=== PATIENT | female | born 1950 | race African-American/Black ===

== ENCOUNTER 2018-04-07 11:09 | Emergency (ER) | payer OTHER ==
[2018-04-07 11:15] VITALS: TEMP 98.2; BMI 39.1
--- NOTE | 2018-04-07 12:17 | PDOC ---
History of Present Illness - General Chief Complaint: Weakness Stated Complaint: WEAKNESS Time Seen by Provider: 04/07/18 12:08 - History of Present Illness Initial Comments: 04/07/18 12:31 The patient is a 68 year old female with a PMH of HTN, HLD, Asthma who presents for evaluation of Lightheadedness, Nausea, and Generalized Weakness. The patient reports a 3 week history of intermittent lightheadedness and generalized weakness with associated nausea that acutely worsened today prompting her presentation to the ED for further evaluation. She notes that her symptoms occasionally worsen with standing but otherwise is unable to note many exacerbating or relieving factors. The patient otherwise denies fevers, chills, SOB, chest pain, vomiting, abdominal pain, or changes with urination or bowel movements. Past History - Past Medical History Allergies/Adverse Reactions: Allergies Allergy/AdvReac Type Severity Reaction Status Date / Time No Known Allergies Allergy Verified 04/07/18 11:10 Home Medications: Ambulatory Orders Amlodipine Besylate [Norvasc -] 10 mg PO DAILY 04/07/18 Losartan/Hydrochlorothiazide [Losartan-Hctz 100-25 mg Tab] 1 each PO DAILY 04/07 Meclizine HCl [Antivert -] 25 mg PO DAILY PRN #30 tablet 04/07/18 Metoprolol Succinate [Toprol Xl] 100 mg PO DAILY 04/07/18 Simvastatin 20 mg PO DAILY 04/07/18 Asthma: Yes COPD: No HTN: Yes Hypercholesterolemia: Yes - Immunization History Immunization Up to Date: Yes - Suicide/Smoking/Psychosocial Hx Smoking History: Never smoked Review of Systems - Review of Systems Comments:: 04/07/18 12:35 Constitutional: Fatigue. No fevers, chills, malaise HEENT: No Rhinorrhea, nasal congestion, visual changes Cardiovascular: Lightheadedness. No chest pain, syncope, palpitations, Respiratory: No Cough, SOB, Hemoptysis, Gastrointestinal: Nausea. No Abdominal pain, Vomiting, Constipation, Diarrhea, Melena Genitourinary: No Dysuria, Frequency, Urgency, Hesitancy, Hematuria, Flank pain Musculoskeletal: No Myalgia, arthralgia Skin: No rashes, itching, bruising, pallor Neurologic: No Headache, Dizziness, Numbness, Weakness, or Tingling Psychiatric: No Hallucinations. No SI or HI *Physical Exam - Vital Signs Last Vital Signs Temp Pulse Resp BP Pulse Ox 98.2 F 99 H 18 151/90 98 04/07/18 11:10 04/07/18 11:10 04/07/18 11:10 04/07/18 11:10 04/07/18 11:10 - Physical Exam Comments: 04/07/18 12:36 General Appearance: Nourished. No Apparent Distress HEENT: EOMI, ZOHRA. No Pharyngeal Erythema, Tonsillar Exudate, Tonsillar Erythema Neck: No Cervical Lymphadenopathy Respiratory/Chest: Lungs Clear, Normal Breath Sounds. No Crackles, Rales, Rhonchi, Wheezing Cardiovascular: Regular Rhythm, Regular Rate. 2/6 Systolic murmur noted on exam. No Gallops, Rubs Gastrointestinal/Abdominal: Normal Bowel Sounds, Soft. No Guarding, Rebound, Tenderness Musculoskeletal: No CVA Tenderness Extremity: Normal Capillary Refill Integumentary: Normal Color, Dry, Warm Neurologic: Fully Oriented, Alert, Normal Mood/Affect, Normal Response, ED Treatment Course - LABORATORY CBC & Chemistry Diagram: 04/07/18 13:00 04/07/18 13:00 Medical Decision Making - Medical Decision Making 04/07/18 12:37 The patient is a 68 year old female with a PMH of HTN, HLD, Asthma who presents for evaluation of Lightheadedness, Nausea, and Generalized Weakness. Differential includes but is not limited to: ACS, Arrhythmia, DM, Infectious, Metabolic derangement. Given the patient's history and physical exam, we will obtain a cbc, cmp, troponin, bnp, tsh, ekg, and chest plain film to evaluate further for possible etiologies. We will treat in the meantime with iv fluids, zofran and continue to monitor and reassess while here in the ED. 04/07/18 15:54 CBC, cmp, troponin, bnp, tsh are unremarkable. Head CT is unremarkable as read by our radiologist. Chest plain film is unremarkable. The patient reports improvement in her symptoms at this time. We are comfortable discharging the patient home with close follow up. We discussed the results, plan, and return precautions with the patient who voiced understanding and is agreeable with the plan. *DC/Admit/Observation/Transfer Diagnosis at time of Disposition: Vertigo - Discharge Dispostion Disposition: HOME Condition at time of disposition: Stable Decision to Admit order: No - Prescriptions Prescriptions: Meclizine HCl [Antivert -] 25 mg PO DAILY PRN #30 tablet PRN Reason: Dizziness - Referrals Referrals: Gagan Kwong MD [Primary Care Provider] - - Patient Instructions Printed Discharge Instructions: DI for Benign Paroxysmal Positional Vertigo Additional Instructions: Please return to the ER if you experience concerning or worsening symptoms including worsening pain, vomiting, or headache. Your lab results and imaging studies were normal here in the ER. Your symptoms were likely due to a combination of dehydration and vertigo. We have sent a prescription to your pharmacy that you may take as needed for dizziness. Please call to schedule a follow up appointment with your primary care provider within 2-3 days to discuss your ER visit and further management of your symptoms. - Post Discharge Activity
[2018-04-07] MEDS ORDERED: ONDANSETRON 4 MG/2 ML VIAL IVPUSH ONE (12:22)
[2018-04-07] MEDS ORDERED: SODIUM CHLORIDE 1,000 ML IV STA (12:22)
[2018-04-07] MEDS ORDERED: ONDANSETRON 4 MG/2 ML VIAL ONE (13:09)
[2018-04-07 13:16] LABS: BASO % 0.9 % (0-2.0); EOS % 0.8 % (0-4.5); HEMATOCRIT 44.7 % (32.4-45.2); HEMOGLOBIN 14.8 GM/dL (10.7-15.3); MCH 30.5 pg (25.7-33.7); MCHC 33.1 g/dl (32.0-36.0); MEAN CELL VOLUME 92.2 fl (80-96); MONO % 11.2 % (3.8-10.2); NEUT % 65.1 % (42.8-82.8); PLATELET COUNT 222 K/MM3 (134-434); RBC 4.85 M/mm3 (3.60-5.2); RDW 13.8 % (11.6-15.6); WHITE BLOOD COUNT 4.9 K/mm3 (4.0-10.0)
[2018-04-07 13:18] LABS: URINE APPEARANCE CLEAR; URINE BILIRUBIN NEGATIVE (<2.0 mg/dL); URINE BLOOD NEGATIVE (NEGATIVE); URINE COLOR LTYELLOW; URINE GLUCOSE (UA) NEGATIVE (NEGATIVE); URINE KETONE NEGATIVE (NEGATIVE); URINE LEUK ESTERASE NEGATIVE (NEGATIVE); URINE NITRITE NEGATIVE (NEGATIVE); URINE PROTEIN NEGATIVE (NEGATIVE); URINE UROBILINOGEN NEGATIVE mg/dL (0.2-1.0)
[2018-04-07 13:49] LABS: ALBUMIN 3.9 g/dl (3.4-5.0); ANION GAP 8 (8-16); BILIRUBIN,TOTAL 0.5 mg/dL (0.2-1.0); BLOOD UREA NITROGEN 17 mg/dL (7-18); CALCIUM 9.4 mg/dL (8.5-10.1); CHLORIDE 102 mmol/L (98-107); CO2 28 mmol/L (21-32); CREATININE 1.1 mg/dL (0.55-1.02); GLUCOSE,RANDOM 111 mg/dL (74-106); SGPT/ALT 16 U/L (12-78); SODIUM 138 mmol/L (136-145)
[2018-04-07] MEDS ORDERED: MECLIZINE HCL 25 MG TABLET (FP) PO ONE (13:49)
[2018-04-07 13:51] LABS: ALK PHOS 68 U/L (45-117)
[2018-04-07 13:56] LABS: POTASSIUM 4.4 mmol/L (3.5-5.1); SGOT/AST 32 U/L (15-37)
[2018-04-07] MEDS ORDERED: MECLIZINE HCL 25 MG TABLET (FP) ONE (13:59)
--- NOTE | 2018-04-07 14:56 | PDOC ---
Attending Attestation - ED Attending Attestation I have performed the following: I have examined & evaluated the patient, The case was reviewed & discussed with the resident, I agree w/resident's findings & plan, Exceptions are as noted - Physicial Exam PE: 04/07/18 14:53 awake alert lungs clear heart rrr no mrg. abd soft nt nd. ext wwp. nuero strength 5/5 al four ext. finger to nose normal. alt hand movement normal. heel to flowers normal. positive nico hallpike to the right. with reucrrent sxs. skin warm and dry. - Medical Decision Making 04/07/18 14:54 differential: anemia, electrolyte abnormality, renal failure, cva (although normal cerebellar exam) ct head ekg cxr ua labs reassess following meclizine. exam c/w bpv, h/o seasonal allergies. <Maggie Castillo - Last Filed: 04/07/18 14:53> - HPI HPI: 04/07/18 14:59 The patient is a 68 year old female, with a significant PMH of hypertension, hyperlipidemia and asthma who presents to the emergency department with 3 weeks of intermittent lightheadedness, nausea without vomiting, and generalized weakness. The patient states the lightheadedness and nausea was worse today which prompted the ED visit. The patient states the lightheadedness is sometimes made worse when standing but resolves on its own. The patient denies chest pain, shortness of breath, headache and dizziness. Denies fever, chills, vomit, diarrhea and constipation. Denies dysuria, frequency, urgency and hematuria. Allergies: NKA Documentation prepared by Kieran Oquendo, acting as medical asst for Maggie Castillo MD. <Kieran Oquendo - Last Filed: 04/07/18 14:59> Heart Score/ECG Review #1 General ECG Interpretation: Sinus Rhythm, Normal Rate (79), Normal Intervals, No acute ischemic changes <Maggie Castillo - Last Filed: 04/07/18 14:53>
[2018-04-07 16:54] VITALS: BP 156/75; PULSE 86
--- NOTE | 2018-04-07 17:58 | EKG ---
Test Reason : Blood Pressure : / mmHG Vent. Rate : 079 BPM Atrial Rate : 079 BPM P-R Int : 200 ms QRS Dur : 082 ms QT Int : 378 ms P-R-T Axes : 051 001 021 degrees QTc Int : 433 ms NORMAL SINUS RHYTHM NORMAL ECG WHEN COMPARED WITH ECG OF 24-OCT-2010 10:53, NO SIGNIFICANT CHANGE WAS FOUND Confirmed by MD JOVANA, RUFINA ([id number]) on 04/07/2018 5:57:45 PM Referred By: Confirmed By:RUFINA WHALEY MD
== END 2018-04-07 16:54 | disposition home or self-care (01) ==
LOC: JER 11:09
PROC: 3E0337Z Introduction of Electrolytic and Water Balance Substance into Peripheral Vein, Percutaneous Approach (ICD-10-PCS; principal; 2018-04-07)
PROC: 3E033GC Introduction of Other Therapeutic Substance into Peripheral Vein, Percutaneous Approach (ICD-10-PCS; 2018-04-07)
DX: R42 Dizziness and giddiness (principal); I10 Essential (primary) hypertension; E78.00 Pure hypercholesterolemia, unspecified; J45.909 Unspecified asthma, uncomplicated
CPT/HCPCS: 36415; 70450-TC; 71045-TC-FY; 80053; 81003; 82550; 82553; 83880; 84443; 84484; 85025; 93005; 93010; 96361; 96374; 99284-25; J7030